=== PATIENT | female | born 1935 | race Caucasian/White ===

== ENCOUNTER 2017-09-23 19:51 | Inpatient (IN) | payer MEDICARE, BC ==
[~2017-09-23] VITALS: Ht 162.6 cm; Wt 52.0 kg
[~2017-09-23 19:51] MED LIST: IBUP-1984 PO; LORA0.5T PO; NOR5T PO; NORCO10T PO; RALO60TA55 PO; REM15T PO
[2017-09-23 20:29] LABS: CLARITY,URINE CLEAR (Clear); COLOR,URINE YELLOW (Yellow); GLUCOSE, URINE NEGATIVE (Neg); KETONES,URINE NEGATIVE (Neg); LEUKOCYTE ESTERASE ,URINE NEGATIVE (Neg); NITRITES, URINE NEGATIVE (Neg); OCCULT BLOOD,URINE SMALL (Neg); PROTEIN,URINE TRACE mg/dl (Neg); UROBILINOGEN,URINE 0.2 E.U/dL (0.2-1.0)
[2017-09-23 20:32] LABS: UA COLLECTION TYPE CLN CATCH MIDSTREAM
[2017-09-23 20:37] LABS: BACTERIA,URINE FEW /HPF (Neg); MUCUS STRANDS MODERATE /LPF (Neg); RBC,URINE 0-2 /HPF (0-2); SQUAMOUS EPITHELIAL CELL,UR MANY /LPF (FEW); WBC,URINE 0-4 /HPF (0-4)
[2017-09-23] MEDS ORDERED: DENO60DI (20:51)
[2017-09-23] MEDS ORDERED: FENT-92 TD (20:51)
[2017-09-23] MEDS ORDERED: morphine 4 MG/ML inj SYRINge IM ONE (21:45)
[2017-09-23] MEDS ORDERED: ondansetron 4mg rapidly disintigrating tab PO ONE (23:25)
[2017-09-23 23:36] LABS: BASOPHILS % (AUTO) 0.1 % (0-1); EOSINOPHILS # (AUTO) 0.2 X10'3 (0-0.9); EOSINOPHILS % (AUTO) 1.3 % (0-6); HEMATOCRIT 31.1 % (35.0-45.0); HEMOGLOBIN 10.4 g/dl (12.0-16.0); LYMPHOCYTES # (AUTO) 1.5 X10'3 (1.1-4.8); LYMPHOCYTES % (AUTO) 10.7 % (21-51); MEAN CORPUSCULAR HEMOGLOBIN 32.7 PG (27.0-31.0); MEAN CORPUSCULAR HGB CONC 33.4 % (33.0-36.5); MEAN CORPUSCULAR VOLUME 97.9 FL (78-98); MEAN PLATELET VOLUME 7.1 FL (7.4-10.4); MONOCYTES # (AUTO) 0.7 X10'3 (0-0.9); MONOCYTES % (AUTO) 4.9 % (2-12); NEUTROPHILS # (AUTO) 11.3 X10'3 (1.8-7.7); PLATELET COUNT 397 X10'3 (140-440); RED BLOOD COUNT 3.18 X10'6 (4.20-5.60); RED CELL DISTRIBUTION WIDTH 13.8 % (11.5-14.5); WHITE BLOOD COUNT 13.7 X10'3 (4.5-11.0)
[2017-09-23 23:47] LABS: PARTIAL THROMBOPLASTIN TIME 26 SECONDS (22-32)
[2017-09-24] VITALS (19 sets, daily range): BP systolic 95–151; BP diastolic 52–80
[2017-09-24 00:05] LABS: ALANINE AMINOTRANSFERASE 22 U/L (12-78); ALBUMIN 3.2 G/DL (3.4-5.0); ALBUMIN/GLOBULIN RATIO 0.8 (1.1-1.5); ALKALINE PHOSPHATASE 64 IU/L (46-116); ANION GAP 9 (8-16); ASPARTATE AMINO TRANSFERASE 19 U/L (10-37); BILIRUBIN,TOTAL 0.3 MG/DL (0.1-1.0); BLOOD UREA NITROGEN 19 MG/DL (7-18); BUN/CREATININE RATIO 29.2 (6.6-38.0); CALCIUM 9.1 MG/DL (8.5-10.1); CHLORIDE 105 MMOL/L (99-107); CREATININE 0.65 MG/DL (0.40-0.90); GLUCOSE 118 MG/DL (70-104); POTASSIUM 3.8 MMOL/L (3.5-5.1); SODIUM 141 MMOL/L (135-145); TOTAL CARBON DIOXIDE 27.2 MMOL/L (24-32); TOTAL PROTEIN 7.1 G/DL (6.4-8.2); eGFR 87 ML/MIN
[2017-09-24] MEDS ORDERED: magnesium hydroxide 30ml (MOM) UD suspension PO PRN ×2 (00:50→15:05)
[2017-09-24] MEDS ORDERED: docusate sod 100mg capsule PO PRN (00:50)
[2017-09-24] MEDS ORDERED: acetaminophen 325mg tablet PO PRN ×2 (00:50→15:05)
[2017-09-24] MEDS ORDERED: ondansetron/PF 4mg/2ml inj IV PRN ×3 (00:50→15:05)
[2017-09-24] MEDS ORDERED: mag hydrox/Alum hydrox/simeth 30ml oral suspension PO PRN (00:50)
[2017-09-24] MEDS ORDERED: nicotine 21mg patch - 24 hr TD ONE (00:55)
[2017-09-24] MEDS ORDERED: LORazepam 0.5 MG tablet PO PRN (01:30)
[2017-09-24] MEDS ORDERED: FENTANYL 75 MCG TD SCH (01:30)
[2017-09-24] MEDS: morphine 4 MG/ML inj SYRINge IV PRN ×5 (01:41→23:20)
[2017-09-24] MEDS: normal saline 1000ml 1,000 ML IV SCH ×2 (03:12→16:17)
[2017-09-24] MEDS: amLODIPine 5mg tablet PO SCH (07:29)
[2017-09-24] MEDS: fentaNYL 75 MCG/hour patch.TD72 TD SCH ×2 (07:31→20:41)
[2017-09-24] MEDS: LORazepam 0.5 MG tablet PO SCH ×4 (07:32→21:11)
[2017-09-24] MEDS ORDERED: clindamycin 600mg/D5W 50ml 50 ML IV ONE (12:00)
[2017-09-24] MEDS ORDERED: MIDAZolam 5mg/5ml vial ONE (14:00)
[2017-09-24] MEDS ORDERED: fentaNYL/PF 50MCG/1 ML 2ML syringe ONE ×2 (14:01→14:30)
[2017-09-24] MEDS ORDERED: LIDOcaine 2% (20mg/ml) 5ml vial ONE (14:02)
[2017-09-24] MEDS ORDERED: propofol inj 20 ML IV ONE (14:02)
[2017-09-24] MEDS ORDERED: ringers solution, lacted 1,000 ML IV SCH (14:44)
[2017-09-24] MEDS ORDERED: bisacodyl 10mg suppository rectal RC PRN (15:05)
[2017-09-24] MEDS ORDERED: diphenhydrAMINE 25mg capsule PO PRN ×2 (15:05)
[2017-09-24] MEDS: fentaNYL/PF 50MCG/1 ML 2ML syringe IV PRN ×4 (15:21→15:57)
[2017-09-24] MEDS: traMADol 50MG tablet PO PRN (19:20)
[2017-09-24] MEDS: clindamycin 600mg/D5W 50ml 50 ML IV SCH (19:21)
[2017-09-24] MEDS: sennosides 8.6mg tablet PO SCH (21:11)
[2017-09-24] MEDS: mirtazapine 15mg tablet PO SCH (23:19)
[2017-09-25] MEDS: clindamycin 600mg/D5W 50ml 50 ML IV SCH (01:23)
[2017-09-25] MEDS: traMADol 50MG tablet PO PRN ×4 (01:24→19:59)
[2017-09-25 02:00] VITALS: BP 121/50
[2017-09-25] MEDS: normal saline 1000ml 1,000 ML IV SCH ×3 (03:30→21:01)
[2017-09-25 05:24] LABS: BASOPHILS % (AUTO) 0.3 % (0-1); EOSINOPHILS # (AUTO) 0.1 X10'3 (0-0.9); EOSINOPHILS % (AUTO) 0.9 % (0-6); HEMOGLOBIN 7.9 g/dl (12.0-16.0); LYMPHOCYTES # (AUTO) 1.2 X10'3 (1.1-4.8); LYMPHOCYTES % (AUTO) 12.5 % (21-51); MEAN CORPUSCULAR HEMOGLOBIN 33.1 PG (27.0-31.0); MEAN CORPUSCULAR HGB CONC 34.1 % (33.0-36.5); MEAN CORPUSCULAR VOLUME 96.9 FL (78-98); MEAN PLATELET VOLUME 6.9 FL (7.4-10.4); MONOCYTES # (AUTO) 0.8 X10'3 (0-0.9); MONOCYTES % (AUTO) 8.5 % (2-12); NEUTROPHILS # (AUTO) 7.3 X10'3 (1.8-7.7); NEUTROPHILS % (AUTO) 77.8 % (42-75); PLATELET COUNT 290 X10'3 (140-440); RED BLOOD COUNT 2.38 X10'6 (4.20-5.60); WHITE BLOOD COUNT 9.4 X10'3 (4.5-11.0)
[2017-09-25 05:41] LABS: ALBUMIN 2.5 G/DL (3.4-5.0); ANION GAP 10 (8-16); BLOOD UREA NITROGEN 13 MG/DL (7-18); BUN/CREATININE RATIO 23.6 (6.6-38.0); CALCIUM 8.4 MG/DL (8.5-10.1); CHLORIDE 105 MMOL/L (99-107); CREATININE 0.55 MG/DL (0.40-0.90); GLUCOSE 115 MG/DL (70-104); POTASSIUM 3.2 MMOL/L (3.5-5.1); SODIUM 141 MMOL/L (135-145); TOTAL CARBON DIOXIDE 26.3 MMOL/L (24-32); eGFR > 90 ML/MIN
[2017-09-25 06:00] VITALS: BP 119/53
[2017-09-25] MEDS: morphine 4 MG/ML inj SYRINge IV PRN ×2 (06:59→16:31)
[2017-09-25] MEDS: amLODIPine 5mg tablet PO SCH (07:45)
[2017-09-25] MEDS: LORazepam 0.5 MG tablet PO SCH ×3 (07:45→22:25)
[2017-09-25] MEDS: enoxaparin 40mg/0.4ml syringe SQ SCH (07:45)
[2017-09-25 10:00] VITALS: BP 117/56
[2017-09-25] MEDS ORDERED: potassium Cl 40MEQ/NS 500ml 500 ML IV PRN ×2 (10:00)
[2017-09-25] MEDS ORDERED: magnesium Cl slow-release 64mg tablet PO PRN (10:00)
[2017-09-25] MEDS ORDERED: potassium Cl 20 mEq SR tablet PO PRN (10:00)
[2017-09-25] MEDS: potassium Cl 20 mEq SR tablet PO PRN ×2 (11:00→16:57)
[2017-09-25 18:00] VITALS: BP 114/62
[2017-09-25] MEDS ORDERED: LACTOSE-FREE FOOD 237ML (BOOST) PO SCH (18:00)
[2017-09-25] MEDS: LACTOSE-FREE FOOD 237ML (BOOST) PO SCH (18:00)
[2017-09-25] MEDS: acetaminophen 325mg tablet PO PRN (20:01)
[2017-09-25] MEDS: mirtazapine 15mg tablet PO SCH (21:00)
[2017-09-25 22:00] VITALS: BP 130/64
[2017-09-25] MEDS: sennosides 8.6mg tablet PO SCH (22:25)
[2017-09-26] MEDS: traMADol 50MG tablet PO PRN ×2 (02:30→17:27)
[2017-09-26 05:51] LABS: BASOPHILS % (AUTO) 0.2 % (0-1); EOSINOPHILS # (AUTO) 0.2 X10'3 (0-0.9); EOSINOPHILS % (AUTO) 2.5 % (0-6); HEMATOCRIT 22.4 % (35.0-45.0); HEMOGLOBIN 7.6 g/dl (12.0-16.0); LYMPHOCYTES # (AUTO) 1.1 X10'3 (1.1-4.8); LYMPHOCYTES % (AUTO) 11.2 % (21-51); MEAN CORPUSCULAR VOLUME 96.8 FL (78-98); MONOCYTES # (AUTO) 0.8 X10'3 (0-0.9); MONOCYTES % (AUTO) 7.8 % (2-12); NEUTROPHILS # (AUTO) 7.6 X10'3 (1.8-7.7); NEUTROPHILS % (AUTO) 78.3 % (42-75); PLATELET COUNT 265 X10'3 (140-440); RED BLOOD COUNT 2.31 X10'6 (4.20-5.60); RED CELL DISTRIBUTION WIDTH 13.6 % (11.5-14.5); WHITE BLOOD COUNT 9.6 X10'3 (4.5-11.0)
[2017-09-26 06:00] VITALS: BP 123/56
[2017-09-26] MEDS: acetaminophen 325mg tablet PO PRN ×2 (06:28→17:27)
[2017-09-26 06:29] LABS: ALBUMIN 2.2 G/DL (3.4-5.0); ANION GAP 9 (8-16); BLOOD UREA NITROGEN 9 MG/DL (7-18); BUN/CREATININE RATIO 19.6 (6.6-38.0); CALCIUM 8.5 MG/DL (8.5-10.1); CHLORIDE 107 MMOL/L (99-107); CREATININE 0.46 MG/DL (0.40-0.90); GLUCOSE 123 MG/DL (70-104); MAGNESIUM 1.8 MG/DL (1.5-2.4); POTASSIUM 3.9 MMOL/L (3.5-5.1); SODIUM 142 MMOL/L (135-145); TOTAL CARBON DIOXIDE 26.5 MMOL/L (24-32); eGFR > 90 ML/MIN
[2017-09-26] MEDS: morphine 4 MG/ML inj SYRINge IV PRN ×2 (06:35→10:47)
[2017-09-26] MEDS: LACTOSE-FREE FOOD 237ML (BOOST) PO SCH ×3 (08:04→18:00)
[2017-09-26] MEDS: LORazepam 0.5 MG tablet PO SCH ×3 (08:04→20:19)
[2017-09-26] MEDS: enoxaparin 40mg/0.4ml syringe SQ SCH (08:04)
[2017-09-26] MEDS: amLODIPine 5mg tablet PO SCH (08:04)
[2017-09-26 11:38] VITALS: BP 125/54
[2017-09-26 18:00] VITALS: BP 132/60
[2017-09-26] MEDS: normal saline 1000ml 1,000 ML IV SCH (19:30)
[2017-09-26] MEDS: sennosides 8.6mg tablet PO SCH (20:19)
[2017-09-26] MEDS: mirtazapine 15mg tablet PO SCH (21:50)
[2017-09-26 22:00] VITALS: BP 122/55
[2017-09-27] VITALS (9 sets, daily range): BP systolic 106–150; BP diastolic 54–86
[2017-09-27] MEDS: traMADol 50MG tablet PO PRN ×4 (01:19→21:15)
[2017-09-27] MEDS: acetaminophen 325mg tablet PO PRN ×4 (01:24→21:16)
[2017-09-27 05:45] LABS: BASOPHILS % (AUTO) 0.3 % (0-1); EOSINOPHILS # (AUTO) 0.3 X10'3 (0-0.9); EOSINOPHILS % (AUTO) 3.6 % (0-6); HEMOGLOBIN 7.1 g/dl (12.0-16.0); LYMPHOCYTES # (AUTO) 1.6 X10'3 (1.1-4.8); LYMPHOCYTES % (AUTO) 17.9 % (21-51); MEAN CORPUSCULAR HEMOGLOBIN 33.5 PG (27.0-31.0); MEAN CORPUSCULAR HGB CONC 34.3 % (33.0-36.5); MEAN CORPUSCULAR VOLUME 97.8 FL (78-98); MEAN PLATELET VOLUME 7.1 FL (7.4-10.4); MONOCYTES # (AUTO) 0.8 X10'3 (0-0.9); MONOCYTES % (AUTO) 9.1 % (2-12); NEUTROPHILS % (AUTO) 69.1 % (42-75); PLATELET COUNT 239 X10'3 (140-440); RED BLOOD COUNT 2.12 X10'6 (4.20-5.60); RED CELL DISTRIBUTION WIDTH 13.5 % (11.5-14.5); WHITE BLOOD COUNT 8.6 X10'3 (4.5-11.0)
[2017-09-27 06:08] LABS: ALBUMIN 1.9 G/DL (3.4-5.0); ANION GAP 7 (8-16); BLOOD UREA NITROGEN 8 MG/DL (7-18); BUN/CREATININE RATIO 16.3 (6.6-38.0); CALCIUM 8.3 MG/DL (8.5-10.1); CHLORIDE 106 MMOL/L (99-107); CREATININE 0.49 MG/DL (0.40-0.90); GLUCOSE 106 MG/DL (70-104); MAGNESIUM 1.8 MG/DL (1.5-2.4); POTASSIUM 3.9 MMOL/L (3.5-5.1); SODIUM 142 MMOL/L (135-145); TOTAL CARBON DIOXIDE 28.8 MMOL/L (24-32); eGFR > 90 ML/MIN
[2017-09-27] MEDS ORDERED: albuterol 2.5 MG/3 ML nebule NEB PRN (06:25)
[2017-09-27 06:47] LABS: HEMATOCRIT 20.8 % (35.0-45.0)
[2017-09-27] MEDS: amLODIPine 5mg tablet PO SCH (07:30)
[2017-09-27] MEDS: LORazepam 0.5 MG tablet PO SCH ×3 (07:30→21:15)
[2017-09-27] MEDS: enoxaparin 40mg/0.4ml syringe SQ SCH (07:31)
[2017-09-27] MEDS: LACTOSE-FREE FOOD 237ML (BOOST) PO SCH ×3 (07:35→18:00)
[2017-09-27] MEDS: normal saline 1000ml 1,000 ML IV SCH (08:50)
[2017-09-27] MEDS: morphine 4 MG/ML inj SYRINge IV PRN (09:51)
[2017-09-27] MEDS: sennosides 8.6mg tablet PO SCH (21:00)
[2017-09-27] MEDS: mirtazapine 15mg tablet PO SCH (22:43)
[2017-09-28] MEDS: acetaminophen 325mg tablet PO PRN ×2 (04:57→11:31)
[2017-09-28] MEDS: traMADol 50MG tablet PO PRN ×2 (04:57→11:31)
[2017-09-28 05:00] VITALS: BP 127/56
[2017-09-28 06:04] LABS: BASOPHILS % (AUTO) 0.4 % (0-1); EOSINOPHILS # (AUTO) 0.4 X10'3 (0-0.9); EOSINOPHILS % (AUTO) 5.3 % (0-6); HEMATOCRIT 26.2 % (35.0-45.0); HEMOGLOBIN 9.1 g/dl (12.0-16.0); LYMPHOCYTES # (AUTO) 1.5 X10'3 (1.1-4.8); LYMPHOCYTES % (AUTO) 17.2 % (21-51); MEAN CORPUSCULAR HEMOGLOBIN 32.7 PG (27.0-31.0); MEAN CORPUSCULAR HGB CONC 34.8 % (33.0-36.5); MEAN CORPUSCULAR VOLUME 93.9 FL (78-98); MEAN PLATELET VOLUME 7.4 FL (7.4-10.4); MONOCYTES # (AUTO) 0.8 X10'3 (0-0.9); MONOCYTES % (AUTO) 9.3 % (2-12); NEUTROPHILS # (AUTO) 5.7 X10'3 (1.8-7.7); NEUTROPHILS % (AUTO) 67.8 % (42-75); PLATELET COUNT 296 X10'3 (140-440); RED BLOOD COUNT 2.79 X10'6 (4.20-5.60); RED CELL DISTRIBUTION WIDTH 15.9 % (11.5-14.5); WHITE BLOOD COUNT 8.5 X10'3 (4.5-11.0)
[2017-09-28 06:15] LABS: ANION GAP 3 (8-16); BLOOD UREA NITROGEN 11 MG/DL (7-18); BUN/CREATININE RATIO 19.3 (6.6-38.0); CALCIUM 8.4 MG/DL (8.5-10.1); CHLORIDE 104 MMOL/L (99-107); CREATININE 0.57 MG/DL (0.40-0.90); GLUCOSE 103 MG/DL (70-104); POTASSIUM 4.1 MMOL/L (3.5-5.1); SODIUM 140 MMOL/L (135-145); TOTAL CARBON DIOXIDE 32.7 MMOL/L (24-32); eGFR > 90 ML/MIN
[2017-09-28 06:16] LABS: MAGNESIUM 1.9 MG/DL (1.5-2.4)
[2017-09-28] MEDS ORDERED: BUPR1PAT TOP (06:50)
[2017-09-28] MEDS: LORazepam 0.5 MG tablet PO SCH ×2 (07:59→12:27)
[2017-09-28] MEDS: enoxaparin 40mg/0.4ml syringe SQ SCH (08:00)
[2017-09-28] MEDS: amLODIPine 5mg tablet PO SCH (08:00)
[2017-09-28] MEDS: LACTOSE-FREE FOOD 237ML (BOOST) PO SCH ×2 (08:00→12:29)
[2017-09-28] MEDS ORDERED: REMOVE & WASTE BUTRANS PATCH DOCUMENTATION TD SCH (08:00)
[2017-09-28] MEDS ORDERED: BUTRANS TOP SCH (08:00)
[2017-09-28 10:00] VITALS: BP 156/57
== END 2017-09-28 15:15 | DRG 481 ==
LOC: ER 19:51 → ED HOLD 09-24 00:50 → ORTHO 4S 09-24 02:10
PROVIDERS: ADMIT Internal Medicine; ATTEND Internal Medicine
PROC: 0QS606Z Reposition Right Upper Femur with Intramedullary Internal Fixation Device, Open Approach (ICD-10-PCS; principal; 2017-09-24 14:10)
PROC: 30233N1 Transfusion of Nonautologous Red Blood Cells into Peripheral Vein, Percutaneous Approach (ICD-10-PCS; 2017-09-27)
DX: S72.141A Displaced intertrochanteric fracture of right femur, initial encounter for closed fracture (principal); E44.0 Moderate protein-calorie malnutrition; D63.8 Anemia in other chronic diseases classified elsewhere; Z68.1 Body mass index [BMI] 19.9 or less, adult; F41.0 Panic disorder [episodic paroxysmal anxiety]; I10 Essential (primary) hypertension; J43.9 Emphysema, unspecified; M54.9 Dorsalgia, unspecified; G89.29 Other chronic pain; E87.6 Hypokalemia; M81.0 Age-related osteoporosis without current pathological fracture; F17.200 Nicotine dependence, unspecified, uncomplicated; W18.39XA Other fall on same level, initial encounter; Z79.82 Long term (current) use of aspirin; Z88.2 Allergy status to sulfonamides; Z88.0 Allergy status to penicillin; Z90.49 Acquired absence of other specified parts of digestive tract; Y93.89 Activity, other specified; Y92.89 Other specified places as the place of occurrence of the external cause; Y99.8 Other external cause status
CPT/HCPCS: 36415; 51702; 71045; 73502; 76000; 80048; 80053; 81001; 83735; 85025; 85610; 85730; 86885; 86900; 86901; 86920; 87070; 93005; 96372; 97110; 97116; 97162; 97530; 99285; A4315; A6213; A6257; A7000; J1650; J2001; J2250; J2270; J2704; J3010; J3370; J3490; J7030; J7120; P9016